=== PATIENT | female | born 1945 | race Caucasian/White ===

== ENCOUNTER 2016-06-04 07:41 | Outpatient (CLI) | payer OTHER | END 2016-06-04 19:48 | disposition home or self-care (01) | LOC: SMA 07:41 | PROVIDERS: ATTEND Family Medicine | DX: Z12.31 Encounter for screening mammogram for malignant neoplasm of breast (principal) | CPT/HCPCS: 77067; G0202 ==

== ENCOUNTER 2017-06-29 13:14 | Outpatient (CLI) | payer OTHER | END 2017-06-29 20:48 | disposition home or self-care (01) | LOC: SMA 13:14 | PROVIDERS: ATTEND Family Medicine | DX: Z12.31 Encounter for screening mammogram for malignant neoplasm of breast (principal); R92.1 Mammographic calcification found on diagnostic imaging of breast | CPT/HCPCS: 77067 ==

== ENCOUNTER 2018-09-08 07:54 | Outpatient (CLI) | payer OTHER | END 2018-09-08 21:06 | disposition home or self-care (01) | LOC: SMA 07:54 | PROVIDERS: ATTEND Family Medicine | DX: Z12.31 Encounter for screening mammogram for malignant neoplasm of breast (principal) | CPT/HCPCS: 77067 ==

== ENCOUNTER 2020-03-07 03:04 | Emergency (ER) | payer OTHER, SELFPAY ==
[~2020-03-07] VITALS: Ht 157.5 cm; Wt 74.8 kg
[2020-03-07 03:10] VITALS: BP_SYST 155
--- NOTE | 2020-03-07 03:18 | NUR ---
Covid -19 specimen collected /nasopharyngeal
[2020-03-07] MEDS ORDERED: METO-442 PO (03:35)
[2020-03-07] MEDS ORDERED: AMLO5TAB4 PO (03:35)
--- NOTE | 2020-03-07 04:10 | NUR ---
Patient ambulatory to [facility], +BM
--- NOTE | 2020-03-07 04:15 | NUR ---
Pt refused CT scan, stated she's feeling better after bowel movement. ER MD aware
--- NOTE | 2020-03-07 04:20 | NUR ---
Pt ambulatory to [facility], stated +BM. Patient feeling relieved
[2020-03-07 04:51] VITALS: BP_SYST 152
--- NOTE | 2020-03-07 04:51 | NUR ---
Patient given written and verbal discharge instructions and verbalizes understanding. ER MD discussed with patient the care provided. Patient in stable condition. ID arm band removed. No Rx given. Patient educated on pain management and to follow up with PMD. Pain Scale 0/10 PS. Opportunity for questions provided and answered.
== END 2020-03-07 04:51 | disposition home or self-care (01) ==
LOC: SED 03:04
DX: K59.00 Constipation, unspecified (principal); Z20.822 Contact with and (suspected) exposure to COVID-19
CPT/HCPCS: 36415; 71045; 99284

== ENCOUNTER 2020-08-05 00:52 | Emergency (ER) | payer OTHER, SELFPAY ==
[~2020-08-05] VITALS: Ht 149.9 cm; Wt 69.4 kg
[~2020-08-05 00:52] MED LIST: AMLO5TAB4 PO; METO-442 PO
[2020-08-05 01:00] VITALS: BP_SYST 144
[2020-08-05 01:22] LABS: BILIRUBIN,URINE NEGATIVE (NEGATIVE); BLOOD, URINE NEGATIVE (NEGATIVE); CLARITY/URINE CLEAR (CLEAR); COLOR,URINE YELLOW (YELLOW); GLUCOSE,URINE NEGATIVE (NEGATIVE); KETONES,URINE NEGATIVE (NEGATIVE); LEUKOCYTE ESTERASE ,URINE NEGATIVE (NEGATIVE); NITRITE, URINE NEGATIVE (NEGATIVE); PROTEIN URINE NEGATIVE (NEGATIVE); UROBILINOGEN,URINE 0.2 (0.2-1.0)
[2020-08-05] MEDS ORDERED: KETOROLAC TROMETHAMINE 30 MG VIAL IVP ONE (01:45)
[2020-08-05] MEDS ORDERED: NACL 0.9% 1,000 ML IV ONE (01:45)
[2020-08-05 02:24] LABS: ANION GAP 8 (5-15); CALCIUM 8.9 mg/dL (8.4-11.0); CHLORIDE 106 mmol/L (98-107); CREATININE 0.77 mg/dL (0.55-1.30); GLUCOSE 106 mg/dL (70-99); POTASSIUM 4.1 mmol/L (3.5-5.1); SODIUM SERUM 142 mmol/L (136-145); UREA NITROGEN, BLOOD 29 mg/dL (8-21)
[2020-08-05 02:30] LABS: ALANINE AMINOTRANSFERASE 13 U/L (12-78); ALBUMIN 3.3 g/dL (3.4-4.8); AMYLASE 62 U/L (0-100); ASPARTATE AMINOTRANSFERASE 15 U/L (10-37); BASOPHILS % (AUTO) 0.5 % (0.0-2.0); EOSINOPHILS # (AUTO) 0.1 K/uL (0.0-0.4); EOSINOPHILS % (AUTO) 1.2 % (0.0-4.0); HEMATOCRIT 35.5 % (36-48); LIPASE 157 U/L (73-393); LYMPHOCYTES # (AUTO) 2.4 K/uL (1.0-5.5); MEAN CORPUSCULAR HEMOGLOBIN 29 pg (27-31); MEAN CORPUSCULAR HGB CONC 34 % (32-36); MEAN CORPUSCULAR VOLUME 85 fL (79.0-98.0); MONOCYTES # (AUTO) 0.7 K/uL (0.0-1.0); MONOCYTES % (AUTO) 9.3 % (1.7-9.3); NEUTROPHILS # (AUTO) 4.3 K/uL (1.8-7.7); PLATELET COUNT (AUTO) 242 K/uL (130-430); PROTHROMBIN TIME 9.8 SECS (9.5-12.5); RED BLOOD CELL COUNT(AUTO) 4.17 MIL/uL (4.2-6.2); RED CELL DISTRIBUTION WIDTH 13.7 % (9.0-15.0); TOTAL BILIRUBIN 0.4 mg/dL (0.0-1.0); WHITE BLOOD COUNT (AUTO) 7.5 K/uL (4.8-10.8)
[2020-08-05 05:40] VITALS: BP_SYST 126
== END 2020-08-05 05:40 | disposition home or self-care (01) ==
LOC: SED 00:52
DX: N20.0 Calculus of kidney (principal); I10 Essential (primary) hypertension; Z79.899 Other long term (current) drug therapy
CPT/HCPCS: 36415; 74176; 76376; 80053; 81003; 82150; 83690; 85025; 85610; 96361; 96374; 99284; J1885; J7030

== ENCOUNTER 2023-07-27 20:59 | Emergency (ER) | payer OTHER ==
[~2023-07-27] VITALS: Ht 152.4 cm; Wt 63.5 kg
[2023-07-27 21:20] VITALS: BP_SYST 138; PULSE 86; RESP 22; TEMP 97.8; O2SAT 97
[2023-07-27] MEDS ORDERED: LIDOCAINE/EPI 1% 1:100000 20 ML VIAL ONE (23:14)
[2023-07-27] MEDS ORDERED: LIDOCAINE/EPI 2% 1:100000 20 ML VIAL INJ ONE (23:15)
[2023-07-27 23:40] VITALS: BP_SYST 138; PULSE 86; RESP 22; TEMP 97.8; O2SAT 97
== END 2023-07-27 23:40 | disposition home or self-care (01) ==
LOC: SED 20:59
DX: S01.81XA Laceration without foreign body of other part of head, initial encounter (principal); S40.011A Contusion of right shoulder, initial encounter; K21.9 Gastro-esophageal reflux disease without esophagitis; I10 Essential (primary) hypertension; Z98.890 Other specified postprocedural states; Z79.899 Other long term (current) drug therapy; W18.39XA Other fall on same level, initial encounter; Y93.89 Activity, other specified; Y92.89 Other specified places as the place of occurrence of the external cause; Y99.8 Other external cause status
CPT/HCPCS: 70470; 73030; 99284